=== PATIENT | male | born 1985 | race Caucasian/White ===

== ENCOUNTER 2020-12-18 07:10 | Emergency (ER) | payer OTHER, SELFPAY ==
[2020-12-18 07:15] VITALS: BP 118/83; PULSE 80; RESP 17; TEMP 36.4; O2SAT 98
--- NOTE | 2020-12-18 07:46 | ED.EXTPRO ---
HPI - Extremity Problem General Chief complaint: Extremity Problem,Nontraumatic Stated complaint: ankle and foot swollen Source: patient Mode of arrival: ambulatory Limitations: no limitations History of Present Illness HPI Narrative: This is a 35-year-old gentleman that presents with some right anterior foot pain with swelling warmth redness tender with movement with no known injuries no fever chills patient has a history moderate alcohol use nonsmoker no medical problems. Complaint: extremity pain Onset (ago): day(s) Pain Consistency: constant Location: right Severity scale (1-10): 4 Quality: aching Radiation: distal Relieving factors: nothing Exacerbating factors: nothing Associated symptoms: denies other symptoms Related Data Allergies Allergy/AdvReac Type Severity Reaction Status Date / Time No Known Allergies Allergy Verified 06/07/19 00:51 Review of Systems Review of Systems: All systems reviewed & are unremarkable except as noted in HPI and below PMFSH Past Medical History Medical History Patient denies medical problems Exam Const: General: no acute distress Orientation/consciousness: patient oriented x3 HENMT: Head: normal to inspection Eyes: Conjunctivae: conjunctivae normal Pupils: Equal, round and reactive pupils present EOM: EOMs intact bilaterally Neck: Neck: normal visual inspection and no lymphadenopathy Chest: Chest palpation & inspection: normal inspection of the chest Resp: Effort & Inspection: normal respiratory effort Auscultation: clear to auscultation bilaterally Cardio: Rate: regular rate Rhythm: regular rhythm GI: GI Palp: Yes Soft to palpation Skin: General skin exam: normal color Rashes: no rashes Extrem: Other: warm tender red and swollen anterior right foot Psych: Mental Status: mental status grossly normal Affect: normal affect Course Course Emergency Course: patient declined any injection pain medicine but will given paperwork to stab with primary care physician and send medication to his pharmacy. Vital Signs Vital signs: Vital Signs Temperature 36.4 C L 12/18/20 07:15 Pulse Rate 80 12/18/20 07:15 Respiratory Rate 17 12/18/20 07:15 Blood Pressure 118/83 12/18/20 07:15 Pulse Oximetry 98 12/18/20 07:15 Temperature 36.4 C L 12/18/20 07:15 Pulse Rate 80 12/18/20 07:15 Respiratory Rate 17 12/18/20 07:15 Blood Pressure 118/83 12/18/20 07:15 Pulse Oximetry 98 12/18/20 07:15 Critical Care Time Critical Care Time Critical Care Time: No Discharge Plan Discharge Clinical Impression: Gout Patient Disposition: Home, Self-Care Condition: Stable Instructions: Antibiotic Form, Gout (ED) Additional Instructions: take medicine as prescribed and follow-up primary care physician within 1 to 2 weeks further evaluation and treatment. Prescriptions: New indomethacin 25 mg capsule 25 mg PO TID Qty: 15 RF: 0 Follow-up/Referrals: UNKNOWN,DOCTOR [Primary Care Provider] - Stand Alone Forms: Work/School Release IP Time of Disposition: 07:51
[2020-12-18 07:55] VITALS: RESP 16
== END 2020-12-18 07:55 | disposition home or self-care (01) ==
PROVIDERS: Emergency Provider Emergency Medicine
DX: M10.9 Gout, unspecified (principal)
CPT/HCPCS: 99283